=== PATIENT | male | born 1965 | race Caucasian/White ===

== ENCOUNTER 2017-02-07 11:58 | Emergency (ER) | payer OTHER ==
[~2017-02-07] VITALS: Ht 175.3 cm; Wt 85.0 kg
[2017-02-07 12:01] VITALS: BP 137/79; PULSE 90; RESP 20; TEMP 98.9; O2SAT 99
--- NOTE | 2017-02-07 12:02 | PD ---
Physical Exam Time Seen by Provider: 12:00 Narrative 51 yowm presents with bilateral aural fullness for three days. Initially had pain associated but pain resolved. Associated congestion. VSS. Seen at triage desk. Awaiting bed placement Data Data Last Documented VS Vital Signs Date Time Temp Pulse Resp B/P Pulse Ox O2 Delivery O2 Flow Rate FiO2 02/07/17 12:01 98.9 90 20 137/79 99 Room Air [facility] Medical Record Reviewed: Yes Supervised Visit with LYLA: Yes Scripts No Active Prescriptions or Reported Meds Tim Dick Feb 07, 2017 12:02
[2017-02-07] MEDS ORDERED: IBUP800T23 PO (12:56)
[2017-02-07] MEDS ORDERED: AMOX500C PO (12:56)
--- NOTE | 2017-02-07 12:56 | PD ---
HPI Chief Complaint: ENT Complaint Time Seen by Provider: 12:55 Travel History International Travel<30 days: No Contact w/Intl Traveler<30days: No Traveled to known affect area: No History of Present Illness HPI 51-year-old male presents to the emergency department complaining of bilateral plugged ears 3 days. He said he tried rinsing them out with eardrops and had no change in symptoms. Muffled hearing. Denies fever, chills, nausea, vomiting. Had upper respiratory symptoms last week with nasal congestion and cough. Had ear pain for the first 2 days but it subsided yesterday; here pain was more on the left than the right. Denies ear pain now. Denies drainage from the ears. No known allergies. No other medical complaints. No other modifying factors or associated signs and symptoms. PFSH Past Medical History Medical History: Denies Significant Hx Social History Alcohol Use: No Tobacco Use: Yes (/2 PPD) Substance Use: No Allergies-Medications (Allergen,Severity, Reaction): Coded Allergies: No Known Allergies (Unverified , 02/07/17) Reported Meds & Prescriptions Reported Meds & Active Scripts Active Ibuprofen 800 Mg Tab 800 Mg PO Q6HR PRN Amoxicillin 500 Mg Cap 500 Mg PO BID 10 Days Review of Systems Except as stated in HPI: all other systems reviewed are Neg Physical Exam Narrative GENERAL: Well-nourished, well-developed male patient, in no acute distress; afebrile, nontoxic-appearing SKIN: Warm and dry. No rash. HEAD: Atraumatic. Normocephalic. EYES: Pupils equal and round at 3 mm with brisk reaction. No scleral icterus. No injection or drainage. PERRLA. EARS: Bilateral pinnae and external canals appear within normal limits. Bilateral tympanic membranes with erythema, loss of landmarks, dullness; without perforation. ENT: Mucosa pink and moist. Pharynx without erythema, edema or exudates. No uvular edema. No uvular, palatal, or tonsillar deviation. Airway patent. NECK: Trachea midline. No lymphadenopathy. CARDIOVASCULAR: Regular rate and rhythm. No murmur appreciated. RESPIRATORY: No accessory muscle use. Clear to auscultation. Breath sounds equal bilaterally. GASTROINTESTINAL: Abdomen soft, non-tender, nondistended. Hepatic and splenic margins not palpable. Bowel sounds are active 4 quadrants. MUSCULOSKELETAL: No obvious deformities. No clubbing. No cyanosis. No edema. NEUROLOGICAL: Awake and alert. Oriented 3. No obvious cranial nerve deficits. Motor grossly within normal limits. Normal speech. Moves all extremities. 5/5 strength to all extremities. PSYCHIATRIC: Appropriate mood and affect; insight and judgment normal. Data Data Last Documented VS Vital Signs Date Time Temp Pulse Resp B/P Pulse Ox O2 Delivery O2 Flow Rate FiO2 02/07/17 12:01 98.9 90 20 137/79 99 Room Air [facility] Medical Decision Making Medical Screen Exam Complete: Yes Emergency Medical Condition: Yes Medical Record Reviewed: Yes Differential Diagnosis Foreign body, cerumen impaction, otitis media, otitis externa Narrative Course 51-year-old male physical exam consistent with bilateral otitis media. She is afebrile and nontoxic-appearing. He denies fever, chills, nausea, vomiting. Had upper respiratory symptoms last week. Amoxicillin and ibuprofen prescribed for home. patient to follow up with ENT as needed. Patient verbalizes understanding and agreement with treatment plan. Patient is medically cleared and stable for discharge. Discussed reasons to return to the emergency department. Instructed patient to follow up with primary care provider. Patient agrees with treatment plan. The patients vital signs are stable and the patient is stable for outpatient follow-up and treatment. Patient discharged home, stable and in no acute distress. Diagnosis Primary Impression: Bilateral otitis media Qualified Code: H66.93 - Bilateral otitis media, unspecified chronicity, unspecified otitis media type Referrals: Ear / Nose / Throat Specialist Primary Care Physician Patient Instructions: General Instructions, Otitis Media (ED) Departure Forms: Tests/Procedures, Work Release Enter return to work date: Feb 08, 2017 Additional Instructions: Take antibiotics as prescribed and complete full course Ibuprofen or Tylenol as directed and as needed to reduce pain and fever Avoid getting water in the ears Do not put anything in the ears; including Q-tips Follow-up with your primary care provider Follow-up with ears nose throat specialist as needed Return to the emergency department immediately with worsening of symptoms Med/Other Pt SpecificInfo: Prescription(s) given Scripts Ibuprofen 800 Mg [id number] Mg PO Q6HR PRN (PAIN) #30 TAB Ref 0 Prov:Richelle Zhang [employer] 02/07/17 Amoxicillin 500 Mg [id number] Mg PO BID 10 Days Ref 0 Prov:Richelle Zhang 02/07/17 Disposition: 01 DISCHARGE HOME Condition: Stable Richelle Zhang Feb 07, 2017 12:56
== END 2017-02-07 13:11 | disposition home or self-care (01) ==
LOC: NEPK 11:58
DX: H66.93 Otitis media, unspecified, bilateral (principal); F17.200 Nicotine dependence, unspecified, uncomplicated
CPT/HCPCS: 99282

== ENCOUNTER 2017-02-24 10:55 | Emergency (ER) | payer SELFPAY ==
[~2017-02-24] VITALS: Ht 175.3 cm; Wt 82.0 kg
[~2017-02-24 10:55] MED LIST: AMOX500C PO; IBUP800T23 PO
[2017-02-24 10:57] VITALS: BP 153/90; PULSE 84; RESP 16; TEMP 98.6; O2SAT 98
[2017-02-24] MEDS ORDERED: AUGM875T PO (11:21)
[2017-02-24] MEDS ORDERED: IBUP800T23 PO (11:21)
--- NOTE | 2017-02-24 11:22 | PD ---
HPI Chief Complaint: ENT Complaint Time Seen by Provider: 11:20 Travel History International Travel<30 days: No Contact w/Intl Traveler<30days: No Traveled to known affect area: No History of Present Illness HPI 51-year-old male presents to the emergency Department with complaint of left ear pain, muffled hearing, crackling in his ear that has continued since after being treated for bilateral ear infections on February 07. He was seen here and took a full course of amoxicillin. He says the right ear feels better but the left ear has continued with the pain and muffled hearing. Denies fever, chills , nausea, vomiting. No associated nasal congestion, cough, sore throat. Denies drainage from the ears. Has not taken any medications or tried any treatments to alleviate his symptoms. No known allergies. No other medical complaints. No other modifying factors or associated signs and symptoms. PFSH Social History Alcohol Use: No Tobacco Use: Yes (/ PPD) Substance Use: No Allergies-Medications (Allergen,Severity, Reaction): Coded Allergies: No Known Allergies (Unverified , 02/07/17) Reported Meds & Prescriptions Reported Meds & Active Scripts Active Ibuprofen 800 Mg Tab 800 Mg PO Q6HR PRN Augmentin (Amoxicillin-Clavulanate) 875-125 mg Tab 875 Mg PO BID 10 Days not for use in CrCl <30 ml/min. Ibuprofen 800 Mg Tab 800 Mg PO Q6HR PRN Amoxicillin 500 Mg Cap 500 Mg PO BID 10 Days Review of Systems Except as stated in HPI: all other systems reviewed are Neg Physical Exam Narrative GENERAL: Well-nourished, well-developed male patient, in no acute distress; afebrile, nontoxic-appearing SKIN: Warm and dry. No rash. HEAD: Atraumatic. Normocephalic. EYES: Pupils equal and round at 3 mm with brisk reaction. No scleral icterus. No injection or drainage. PERRLA. EARS: Bilateral pinnae and external canals appear within normal limits. Right tympanic membranes with erythema and bulging; without dullness or perforation. Left tympanic membrane is with erythema, dullness, loss of landmarks and without perforation. ENT: Mucosa pink and moist. Oropharynx without erythema; without edema or exudates. No uvular edema. No uvular, palatal, or tonsillar deviation. Airway patent. NECK: Trachea midline. No lymphadenopathy. CARDIOVASCULAR: Regular rate. RESPIRATORY: No accessory muscle use. GASTROINTESTINAL: Rounded. MUSCULOSKELETAL: No obvious deformities. No clubbing. No cyanosis. No edema. NEUROLOGICAL: Awake and alert. Oriented 3. No obvious cranial nerve deficits. Motor grossly within normal limits. Normal speech. Moves all extremities. 5/5 strength to all extremities. PSYCHIATRIC: Appropriate mood and affect; insight and judgment normal. Data Data Last Documented VS Vital Signs Date Time Temp Pulse Resp B/P Pulse Ox O2 Delivery O2 Flow Rate FiO2 02/24/17 10:57 98.6 84 16 153/90 98 Room Air Orders Lidocaine 1% Inj (50 Ml) (Xylocaine 1% I (02/24/17 11:30) Ceftriaxone Inj (Rocephin Inj) (02/24/17 11:30) MDM Medical Decision Making Medical Screen Exam Complete: Yes Emergency Medical Condition: Yes Medical Record Reviewed: Yes Differential Diagnosis Cerumen impaction, foreign body, otitis media, otitis externa Narrative Course 51-year-old male physical exam consistent with left otitis media. I saw this patient on February 07 with bilateral otitis media and he was treated with amoxicillin which he completed the full course. He has had continued left ear pain since completing the medication. Denies fever, vomiting. Patient is afebrile nontoxic appearing. Rocephin IM administered in the ER. Augmentin and ibuprofen prescribed for home. Instructed patient to follow up with primary care and ENT. Patient verbalizes understanding and agreement with treatment plan. Patient is medically cleared and stable for discharge. Discussed reasons to return to the emergency department. Instructed patient to follow up with primary care provider. Patient agrees with treatment plan. The patients vital signs are stable and the patient is stable for outpatient follow- up and treatment. Patient discharged home, stable and in no acute distress. Diagnosis Primary Impression: Left otitis media Qualified Code: H66.92 - Left otitis media, unspecified chronicity, unspecified otitis media type Referrals: Ear / Nose / Throat Specialist Primary Care Physician Patient Instructions: General Instructions, Otitis Media (ED) Departure Forms: Tests/Procedures, Work Release Enter return to work date: February 27, 2017 Additional Instructions: Take antibiotics as prescribed and complete full course Ibuprofen or Tylenol as directed and as needed to reduce pain and fever Avoid getting water in the ears Do not put anything in the ears; including Q-tips Follow-up with primary care provider Follow-up with ears nose throat specialist Return to the emergency department immediately with worsening of symptoms Med/Other Pt SpecificInfo: Prescription(s) given Scripts Ibuprofen 800 Mg [id number] Mg PO Q6HR PRN (PAIN) #30 TAB Ref 0 Prov:Richelle Zhang 02/24/17 Amoxicillin-Clavulanate (Augmentin)875-125 mg [id number] Mg PO BID 10 Days Ref 0 not for use in CrCl <30 ml/min. Prov:Richelle Zhang 02/24/17 Disposition: 01 DISCHARGE HOME Condition: Stable Richelle Zhang Feb 24, 2017 11:22
[2017-02-24] MEDS ORDERED: LIDOCAINE HCL 1% 50 ML VIAL IM ONE (11:30)
== END 2017-02-24 12:32 | disposition home or self-care (01) ==
LOC: NEPK 10:55
DX: H66.92 Otitis media, unspecified, left ear (principal); F17.200 Nicotine dependence, unspecified, uncomplicated
CPT/HCPCS: 96372; 99282; J0696